=== PATIENT | female | born 1970 | race American Indian/Alaskan Native ===

== ENCOUNTER 2021-01-07 11:37 | Emergency (ER) | payer SELFPAY ==
[2021-01-07 11:40] VITALS: BP 138/97
[2021-01-07] MEDS ORDERED: MORPHINE 4 MG/1 ML INJ IV ONE (11:49)
[2021-01-07] MEDS ORDERED: ONDANSETRON 4 MG/2 ML INJ IV ONE (11:49)
[2021-01-07] MEDS ORDERED: SODIUM CHLORIDE 0.9% 1000 ML 1,000 ML IV ONE (11:49)
--- NOTE | 2021-01-07 11:53 | Emergency Department Report ---
ED Abdominal Pain HPI - General Chief Complaint: Extremity Injury, Lower Stated Complaint: RT KNEE SWOLLEN Time Seen by Provider: 01/07/21 11:41 Source: patient Mode of arrival: Wheelchair Limitations: No Limitations - History of Present Illness MD Complaint: abdominal pain -: week(s) (2) - Related Data Previous Rx's Medication Instructions Recorded Last Taken Type NIFEdipine XL [Procardia Xl] 90 mg PO QDAY #30 tablet NS 10/09/14 Unknown Rx hydrALAZINE [Apresoline TAB] 100 mg PO Q8HR #90 tab NS 10/09/14 Unknown Rx labetaloL [Labetalol 200mg TAB] 200 mg PO BID #60 tablet NS 10/09/14 Unknown Rx lisinopriL [Zestril TAB] 40 mg PO QDAY #30 tablet NS 10/09/14 Unknown Rx Aspirin 325 mg PO QDAY #30 tablet 01/09/15 Unknown Rx Chlorthalidone [Thalitone] 25 mg PO QDAY #30 tablet NS 01/09/15 Unknown Rx Famotidine [Pepcid] 20 mg PO BID #60 tablet 01/09/15 Unknown Rx amLODIPine 10 mg PO QDAY #30 tablet 01/09/15 Unknown Rx levoFLOXacin [Levaquin TAB] 250 mg PO Q24HR #7 tablet 01/09/15 Unknown Rx Allergies Allergy/AdvReac Type Severity Reaction Status Date / Time No Known Allergies Allergy Verified 01/07/21 11:38 ED Review of Systems ROS: Stated complaint: RT KNEE SWOLLEN Other details as noted in HPI ED Past Medical Hx - Past Medical History Hx Hypertension: Yes Hx CVA: Yes Hx Congestive Heart Failure: No Hx Diabetes: No Hx Asthma: Yes Hx COPD: No Hx HIV: No - Social History Smoking Status: Current Every Day Smoker - Medications Home Medications: Home Medications Medication Instructions Recorded Confirmed Last Taken Type NIFEdipine XL [Procardia Xl] 90 mg PO QDAY #30 tablet NS 10/09/14 01/07/15 Unknown Rx hydrALAZINE [Apresoline TAB] 100 mg PO Q8HR #90 tab NS 10/09/14 01/07/15 Unknown Rx labetaloL [Labetalol 200mg TAB] 200 mg PO BID #60 tablet NS 10/09/14 01/07/15 Unknown Rx lisinopriL [Zestril TAB] 40 mg PO QDAY #30 tablet NS 10/09/14 01/07/15 Unknown Rx Aspirin 325 mg PO QDAY #30 tablet 01/09/15 Unknown Rx Chlorthalidone [Thalitone] 25 mg PO QDAY #30 tablet NS 01/09/15 Unknown Rx Famotidine [Pepcid] 20 mg PO BID #60 tablet 01/09/15 Unknown Rx amLODIPine 10 mg PO QDAY #30 tablet 01/09/15 Unknown Rx levoFLOXacin [Levaquin TAB] 250 mg PO Q24HR #7 tablet 01/09/15 Unknown Rx ED Physical Exam - General Limitations: No Limitations ED Course Vital Signs 01/07/21 11:39 Temperature 97.8 F Pulse Rate 70 Respiratory 18 Rate Blood Pressure 138/97 O2 Sat by Pulse 99 Oximetry Critical care attestation.: If time is entered above; I have spent that time in minutes in the direct care of this critically ill patient, excluding procedure time. ED Disposition Condition: Stable
--- NOTE | 2021-01-07 11:55 | Emergency Department Report ---
ED Extremity Problem HPI - General Chief complaint: Extremity Injury, Lower Stated complaint: RT KNEE SWOLLEN Time Seen by Provider: 01/07/21 11:41 Source: patient Mode of arrival: Wheelchair Limitations: No Limitations - History of Present Illness Initial comments: 50 year old female with past medical hx of HTN presents to ED with complaints of right knee pain and swelling. Patient states she noticed mild pain lateral aspect of her right knee after she got off work monday night. She states the next day she when she woke up the knee was swollen and more painful and she had difficult time walking. She is unsure of any particular injury. She states that she did start a new job about a week ago where she does a lot of standing. She states that she has been taking [id number] ibuprofen and Goody powders which has only been taking "the edge" off . He does report some improvement of the swelling since it first started and she states that it does feel warm to touch. She denies any apparent erythema or bruising. She denies any known history of gout or arthritis. She denies similar symptoms in the past. She denies any history of knee procedures or surgeries in the past. She denies any calf pain, swelling, chest pain, shortness of breath, fever or chills. MD Complaint: joint swelling, joint paint -: Gradual, days(s) (3) Location: right, knee - Related Data Previous Rx's Medication Instructions Recorded Last Taken Type NIFEdipine XL [Procardia Xl] 90 mg PO QDAY #30 tablet NS 10/09/14 Unknown Rx hydrALAZINE [Apresoline TAB] 100 mg PO Q8HR #90 tab NS 10/09/14 Unknown Rx labetaloL [Labetalol 200mg TAB] 200 mg PO BID #60 tablet NS 10/09/14 Unknown Rx lisinopriL [Zestril TAB] 40 mg PO QDAY #30 tablet NS 10/09/14 Unknown Rx Aspirin 325 mg PO QDAY #30 tablet 01/09/15 Unknown Rx Chlorthalidone [Thalitone] 25 mg PO QDAY #30 tablet NS 01/09/15 Unknown Rx Famotidine [Pepcid] 20 mg PO BID #60 tablet 01/09/15 Unknown Rx amLODIPine 10 mg PO QDAY #30 tablet 01/09/15 Unknown Rx Acetaminophen/Codeine [Tylenol 1 tab PO Q6H PRN #12 tab 01/07/21 Unknown Rx /Codeine # 3 tab] Ibuprofen [Motrin] 400 mg PO Q8H PRN #30 tablet 01/07/21 Unknown Rx predniSONE [Deltasone] 40 mg PO QDAY #8 tab 01/07/21 Unknown Rx Allergies Allergy/AdvReac Type Severity Reaction Status Date / Time No Known Allergies Allergy Verified 01/07/21 11:38 ED Review of Systems ROS: Stated complaint: RT KNEE SWOLLEN Other details as noted in HPI Comment: All other systems reviewed and negative Constitutional: denies: chills, fever Eyes: denies: eye pain, eye discharge, vision change ENT: denies: ear pain, throat pain, dental pain, hearing loss, epistaxis, congestion Respiratory: denies: cough, shortness of breath, SOB with exertion, SOB at rest, wheezing Endocrine: no symptoms reported Gastrointestinal: denies: abdominal pain, nausea, vomiting, diarrhea, constipation, hematemesis, hematochezia Genitourinary: denies: urgency, dysuria, frequency, hematuria, discharge, abnormal menses, dyspareunia Musculoskeletal: joint swelling, arthralgia Skin: denies: rash, lesions, change in color, change in hair/nails, pruritus Neurological: denies: headache, weakness, numbness, paresthesias, confusion, abnormal gait, vertigo Psychiatric: denies: anxiety, depression, auditory hallucinations, visual hallucinations, homicidal thoughts, suicidal thoughts Hematological/Lymphatic: denies: easy bleeding, easy bruising, swollen glands ED Past Medical Hx - Past Medical History Hx Hypertension: Yes Hx CVA: Yes Hx Congestive Heart Failure: No Hx Diabetes: No Hx Asthma: Yes Hx COPD: No Hx HIV: No - Social History Smoking Status: Current Every Day Smoker - Medications Home Medications: Home Medications Medication Instructions Recorded Confirmed Last Taken Type NIFEdipine XL [Procardia Xl] 90 mg PO QDAY #30 tablet NS 10/09/14 01/07/15 Unknown Rx hydrALAZINE [Apresoline TAB] 100 mg PO Q8HR #90 tab NS 10/09/14 01/07/15 Unknown Rx labetaloL [Labetalol 200mg TAB] 200 mg PO BID #60 tablet NS 10/09/14 01/07/15 Unknown Rx lisinopriL [Zestril TAB] 40 mg PO QDAY #30 tablet NS 10/09/14 01/07/15 Unknown Rx Aspirin 325 mg PO QDAY #30 tablet 01/09/15 Unknown Rx Chlorthalidone [Thalitone] 25 mg PO QDAY #30 tablet NS 01/09/15 Unknown Rx Famotidine [Pepcid] 20 mg PO BID #60 tablet 01/09/15 Unknown Rx amLODIPine 10 mg PO QDAY #30 tablet 01/09/15 Unknown Rx Acetaminophen/Codeine [Tylenol 1 tab PO Q6H PRN #12 tab 01/07/21 Unknown Rx /Codeine # 3 tab] Ibuprofen [Motrin] 400 mg PO Q8H PRN #30 tablet 01/07/21 Unknown Rx predniSONE [Deltasone] 40 mg PO QDAY #8 tab 01/07/21 Unknown Rx ED Physical Exam - General Limitations: No Limitations General appearance: alert, in no apparent distress - Head Head exam: Present: atraumatic, normocephalic, normal inspection - Neck Neck exam: Present: normal inspection, full ROM - Respiratory Respiratory exam: Present: normal lung sounds bilaterally. Absent: respiratory distress, wheezes, rales, rhonchi, stridor - Cardiovascular Cardiovascular Exam: Present: regular rate, normal rhythm, normal heart sounds - Expanded Lower Extremity Exam Right Knee exam: Present: tenderness (moderate mainly medial/lateral and anterior knee ), swelling (moderate), effusion (moderate). Absent: full ROM (Mild decrease in extension of the knee; flexion decreased to about 90 degrees), abrasion, laceration, ecchymosis, deformity, crepidus, dislocation, erythema Lower Leg exam: Absent: tenderness, swelling, abrasion, laceration, ecchymosis, deformity, crepidus, dislocation, erythema, palpable cord, Amber's sign Neuro vascular tendon exam: Present: no vascular compromise, abnormal cap refill. Absent: motor deficit, sensory deficit Gait: Positive: observed and limited by pain - Neurological Exam Neurological exam: Present: alert, oriented X3, CN II-XII intact - Psychiatric Psychiatric exam: Present: normal affect, normal mood - Skin Skin exam: Present: intact ED Course Vital Signs 01/07/21 11:39 Temperature 97.8 F Pulse Rate 70 Respiratory 18 Rate Blood Pressure 138/97 O2 Sat by Pulse 99 Oximetry ED Medical Decision Making - Radiology Data Radiology results: report reviewed X-ray report per radiologist shows large right knee effusion. Slight osteopenia. No fracture is identified. - Medical Decision Making 1407: X-ray of the knee shows large joint effusion. Slight osteopenia. No evidence of fracture. Physical exam does not suggest septic joint or cellulitis as patient has no overlying erythema and she is afebrile. She also has no calf pain or swelling to her calf or tenderness to the calf to suggest DVT. Her right lower extremity is neurovascularly intact. I suspect more inflammatory than infectious process at this time. Discussed x-ray results and suspected diagnosis with patient. Patient will be started on ibuprofen 400 mg and, prednisone 40 mg to take as prescribed. She will be given referral to orthopedics for follow-up next week. Knee immobilizer applied and patient given crutches. Patient understands elevate her leg as often as possible for the next few days to help with the swelling. Worsening signs and symptoms also discussed with patient. She expressed understanding of all instructions and agree with plan. Patient was stable at time of discharge. - Differential Diagnosis DJD, gout, septic joint, cellulitis, DVT Critical care attestation.: If time is entered above; I have spent that time in minutes in the direct care of this critically ill patient, excluding procedure time. ED Disposition Clinical Impression: Knee effusion, right Disposition: 01 HOME / SELF CARE / HOMELESS Is pt being admited?: No Does the pt Need Aspirin: No Condition: Stable Instructions: Knee Effusion, [id number] Additional Instructions: Recommend that you use the knee immobilizer as discussed. Elevate your knee as often as possible. Recommend that you take the prednisone and ibuprofen and the Tylenol threes as prescribed. Most importantly I recommend that you follow-up with marketing content specialist next week for further evaluation of the knee and for possible drainage of the effusion. Return to the ER if your symptoms worsen including if there appears to be redness developing over the knee, and he de veloped a fever of 100.5 or higher with it. Prescriptions: predniSONE [Deltasone] 40 mg PO QDAY #8 tab Ibuprofen [Motrin] 400 mg PO Q8H PRN #30 tablet PRN Reason: Pain Acetaminophen/Codeine [Tylenol /Codeine # 3 tab] 1 tab PO Q6H PRN #12 tab PRN Reason: Pain , Severe (7-10) Referrals: KRANTHI BARRON MD [Staff Physician] - 3-5 Days (Clinical Associate) Forms: Work/School Release Form(ED) Time of Disposition: 14:00 Print Language: BELARUSIAN
[2021-01-07] MEDS ORDERED: predniSONE 20 MG TAB PO ONE (12:01)
[2021-01-07] MEDS ORDERED: ACETAMINOPHEN W/CODEINE 300-30 MG TAB PO ONE (12:01)
--- NOTE | 2021-01-11 10:08 | XRay Report ---
Right knee 3 views INDICATION: Right knee pain following injury IMPRESSION: Large right knee effusion. Slight osteopenia. No fracture is identified. Signer Name: Aayush Rivera MD Signed: 01/07/2021 12:48 PM Workstation Name: [id number]
== END 2021-01-07 14:28 | disposition home or self-care (01) ==
LOC: ED 11:37
DX: M25.461 Effusion, right knee (principal); I10 Essential (primary) hypertension; F17.200 Nicotine dependence, unspecified, uncomplicated; Z86.73 Personal history of transient ischemic attack (TIA), and cerebral infarction without residual deficits
CPT/HCPCS: 29505; 73562; 99283; J7512